=== PATIENT | male | born 1995 | race Hispanic/Latino ===

== ENCOUNTER 2019-07-11 03:39 | Emergency (ER) | payer SELFPAY ==
[2019-07-11] MEDS ORDERED: Ketorolac Tromethamine 30 MG/ML VIAL ONE (04:03)
[2019-07-11 04:19] LABS: #Basophils 0.1 thou/uL (0.0-0.2); #Eosinphils 0.1 thou/uL (0.0-0.7); #Lymphocytes 2.6 thou/uL (1.20-3.40); #Monocytes 1.1 thou/uL (0.11-0.59); #Neutrophils 11.7 thou/uL (1.40-6.50); %Basophils 0.5 % (0.0-1.0); %Eosinophils 0.6 % (0.0-10.0); %Lymphocytes 16.5 % (21.0-51.0); %Monocytes 7.1 % (0.0-10.0); %Neutrophils 75.3 % (42.0-75.0); Hemoglobin 15.9 g/dL (14.0-18.0); Mean Corpuscular HGB CONC 34.2 g/dL (32.0-36.0); Mean Corpuscular Hemoglobin 29.7 pg (27.0-31.0); Mean Corpuscular Volume 86.9 fL (78.0-98.0); Mean Platelet Volume 6.3 fL (7.4-10.4); Platelet Count 387 thou/uL (130-400); RBC Distribution Width 11.6 % (11.5-14.5); Red Blood Cell (RBC) Count 5.36 mill/uL (4.70-6.10); White Blood Cell (WBC) Count 15.6 thou/uL (4.8-10.8)
[2019-07-11 04:39] LABS: ALT (SGPT) 13 U/L (8-55); AST (SGOT) 15 U/L (5-34); Albumin 5.2 g/dL (3.5-5.0); Alkaline Phosphatase 74 U/L (40-110); Anion Gap 13 mmol/L (10-20); BUN (Urea Nitrogen) 10 mg/dL (8.9-20.6); Bilirubin, Total 0.7 mg/dL (0.2-1.2); Calc. Creatinine Clearance 0 mL/min (70-130); Calcium 10.1 mg/dL (7.8-10.44); Carbon Dioxide 26 mmol/L (22-29); Chloride 102 mmol/L (98-107); Estimated GFR-MDRD Greater than 90; Globulin 3.3 g/dL (2.4-3.5); Glucose 95 mg/dL (70-105); Lipase 12 U/L (8-78); Potassium 3.4 mmol/L (3.5-5.1); Protein, Total 8.5 g/dL (6.0-8.3); Sodium 138 mmol/L (136-145)
--- NOTE | 2019-07-11 08:04 | CT ---
PRELIMINARY REPORT/[facility]/EMERGENCY AFTER HOURS PROCEDURE PROCEDURE: CT Scan Abdomen and Pelvis with IV Contrast Material. HISTORY: Lower abdomen pain with nausea. TECHNIQUE: Axial images were performed with multiplanar reconstructions. The patient was given iodina mandeep contrast intravenously. The patient was not given oral contrast material. COMPARISONS: None. FINDINGS: Clear lung bases. Liver, spleen, adrenals, and pancreas show no significant abnormality. Kidneys show no masses or obst ructive uropathy. Normal biliary tract. No abdominal ascites or pneumoperitoneum. Normal aorta. No lymphadenopathy. Nonspecific fluid throughout small bowel without obstruction. No bowel inflammation. Normal appendi x. Pelvis shows no masses or free fluid. Normal urinary bladder. No acute bony abnormality. IMPRESSION: Nonspecific fluid in small bowel loops with no obstruction or inflammation. No other abnormality identified. ELECTRONICALLY SIGNED BY: Nikita Allen MD Jul 11, 2019 5:13:48 AM [facility] FINAL REPORT EMERGENT AFTER HOURS CT OF THE ABDOMEN AND PELVIS WITH CONTRAST: FINDINGS/IMPRESSION: I agree with the findings given in the preliminary report per [facility] physician. There is f luid seen in the small bowel loops. However, the small bowel loops are normal in caliber and this is likely normal for the patient. No acute intraabdominal/pelvic abnormality is identified.
[2019-07-11] MEDS ORDERED: Iopamidol-370 76% 500 ML 1 ML ONE (12:49)
== END 2019-07-11 05:50 | disposition home or self-care (01) ==
LOC: ERS 03:39
DX: R10.30 Lower abdominal pain, unspecified (principal); R10.812 Left upper quadrant abdominal tenderness
CPT/HCPCS: 74177; 80053; 83690; 85025; 96374; J1885; Q9967